=== PATIENT | female | born 2005 | race Caucasian/White ===

== ENCOUNTER 2024-02-28 12:12 | Emergency (ER) | payer OTHER ==
[~2024-02-28] VITALS: Ht 162.6 cm; Wt 63.6 kg
[2024-02-28 12:18] VITALS: TEMP 98.6
[2024-02-28] MEDS ORDERED: Ketorolac 30 MG/ML VIAL IV ONE (12:45)
[2024-02-28] MEDS ORDERED: NS 1,000 ML IV ONE (12:45)
[2024-02-28 12:52] LABS: BASO % 0.3 % (0.0-2.0); EOS % 0.2 % (0.0-4.0); GRAN # 6.2 K/mm3 (1.4-6.5); GRAN % 66.1 % (42.2-75.2); HEMATOCRIT 40.7 % (35.0-45.0); HEMOGLOBIN 13.9 g/dl (12.0-15.0); LYMPH % 21.3 % (20.0-51.0); MEAN CELL VOLUME 92 fl (80.0-95.0); MEAN CORPUSCULAR HEMOGLOBIN 31 pg (26-32); MEAN CORPUSCULAR HGB CONC 34 g/dl (33.0-37.0); MONO # 1.1 K/mm3 (0.1-0.6); MONO % 11.8 % (1.7-9.3); PLATELET COUNT 212 K/mm3 (130-400); RED BLOOD COUNT 4.42 M/mm3 (4.10-5.30)
[2024-02-28 12:58] LABS: PH 7.5 (5.0-8.5); URINE APPEARANCE CLEAR (CLEAR/HAZY); URINE BLOOD NEGATIVE (NEGATIVE); URINE COLOR YELLOW (YELLOW); URINE GLUCOSE NEGATIVE (NEGATIVE); URINE KETONE NEGATIVE (NEGATIVE); URINE NITRATE NEGATIVE (NEGATIVE); URINE PROTEIN(semi-quant) NEGATIVE (NEGATIVE); URINE UROBILINOGEN 0.2 E.U/dL (0.2-1.0)
[2024-02-28 13:10] LABS: ALBUMIN 4.3 g/dL (3.5-5.0); BILIRUBIN,TOTAL 0.5 mg/dL (0.2-1.2); C-REACTIVE PROTEIN 0.11 mg/dL (0.00-0.50); CALCIUM 9.4 mg/dL (8.4-10.2); CREATININE, serum 0.64 mg/dL (0.57-1.11); POTASSIUM 4.1 mEq/L (3.5-4.5); TOTAL PROTEIN 7.2 g/dl (6.2-8.1)
[2024-02-28 13:11] LABS: COLLECTION METHOD CLEAN CATCH
[2024-02-28] MEDS ORDERED: Iohexol 300 - 100 ML VIAL IV ONE (14:10)
[2024-02-28] MEDS ORDERED: NS 100 ML IV ONE (14:12)
[2024-02-28] MEDS ORDERED: NAPROSYN500 MG PO (15:23)
[2024-02-28 15:35] VITALS: BP 104/69; PULSE 78
== END 2024-02-28 15:37 | disposition home or self-care (01) ==
LOC: COL.ER 12:12
PROVIDERS: Emergency Medicine
DX: K59.00 Constipation, unspecified (principal)
CPT/HCPCS: J1885; J7030; Q9967